=== PATIENT | male | born 2000 | race Caucasian/White ===

== ENCOUNTER 2018-02-28 15:43 | Emergency (ER) | payer OTHER ==
[2018-02-28 16:15] VITALS: BP 126/84
[2018-02-28] MEDS ORDERED: BACITRACIN OINT 0.9 GM PKT TP ONE (16:15)
--- NOTE | 2018-02-28 16:15 | ER Report ---
History and Physical Time Seen By MD: 15:49 Hx. of Stated Complaint: PATIENT CUT HIS LEFT 4TH DIGIT WHILST CUTTING AVACADOS. HPI/ROS CHIEF COMPLAINT: finger laceration HISTORY OF PRESENT ILLNESS: Pt here for evaluation of 2cm laceration occurring to left 4th finger while cutting an avacado. + active bleeding. wound goes to the lateral aspect of the finger. Pt has full range of motion however sensation on the side of the laceration is decreased. denies tingling. REVIEW OF SYSTEMS: Constitutional: No fever, no chills. Musculoskeletal: FROM of affected finger Skin: 2 cm lac Neurological: decreased sensation Allergies: Coded Allergies: No Known Drug Allergies (Unverified , 02/28/18) Past Medical/Surgical History pmhx and pshx non contribuitory Reviewed Nurses Notes: Yes Hx Smoking: No Hx Alcohol Use: Yes Constitutional Vital Sign - Last 24 Hours 02/28/18 15:47 Temp 98.3 Pulse 71 Resp 20 B/P (MAP) 123/77 Pulse Ox 96 O2 Delivery Room Air Physical Exam General Appearance: The patient is alert, has no immediate need for airway protection and no signs of toxicity. Eyes: Pupils equal and round no pallor or injection, EOMI Respiratory: There are no retractions, lungs are clear to auscultation. Cardiovascular: Regular rate and rhythm. pulses are equal and symmetrical Neurological: Cranial nerves II-XII grossly intact, + sensation distal to the laceration is decreased when compared to other side Skin: Warm and dry, 2cm lac to 4th left digit between the mcp and pip joint Extremities have full range of motion. pt is able to flex and extend at dip and pip joints of affected finger DIFFERENTIAL DIAGNOSIS: After history and physical exam differential diagnosis was considered for neurobascular injury secondary to lac; tendon injury Medical Decision Making ED Course/Re-evaluation ED Course Procedure: Laceration repair. Verbal consent was obtained from the patient. The 2cm laceration on the ring finger L was anesthetizedwith digital block using lido 2% 2ml. The wound was scrubbed, draped and explored to its base with a gloved finger. There were no obviousdeep structures involved. No tendon injury was identified. The wound was repaired with ethlon 5.0 7 intermittent sutures . The wound repair was simple. The procedure was performed by myself. Spoke with pt at length about possible nerve injury. recommend follow up with orthopedics hand specialist. Decision to Disposition Date: Feb 28, 2018 Decision to Disposition Time: 16:19 Depart Departure Latest Vital Signs Vital Signs Date Time Temp Pulse Resp B/P (MAP) Pulse Ox O2 Delivery O2 Flow Rate FiO2 02/28/18 15:47 98.3 71 20 123/77 96 Room Air Impression: Primary Impression: Finger laceration Condition: Improved Disposition: HOME OR SELF-CARE Referrals: HUMPHREY DALE MD 5 Days Patient Instructions: Finger Laceration (ED) Additional Instructions: You had a deep laceration which required sutures to close. It is possible that you damaged one of your peripheral nerves with your laceration. Follow up with orthopedic hand specialist, Dr. Dale. Suture removal in 10 days which can be done by your family doctor. Keep area clean. You may shower Return for any concerns. Problem Qualifiers Primary Impression: Finger laceration Encounter type: initial encounter Finger: ring finger Damage to nail status : with damage Foreign body presence: without foreign body Laterality: left Qualified Codes: S61.315A - Laceration without foreign body of left ring finger with damage to nail, initial encounter MILI QUICK DO Feb 28, 2018 16:15
== END 2018-02-28 16:24 | disposition home or self-care (01) ==
LOC: ER 15:51
DX: S61.315A Laceration without foreign body of left ring finger with damage to nail, initial encounter (principal); W26.0XXA Contact with knife, initial encounter
CPT/HCPCS: 99283